=== PATIENT | female | born 1985 | race Caucasian/White ===

== ENCOUNTER 2024-01-17 10:07 | Emergency (ER) | payer BC ==
[2024-01-17 10:17] VITALS: BP 111/65; PULSE 99
[2024-01-17] MEDS: methylPREDNISolone Acetate 80 MG/ML SDV IM ONE (11:24)
[2024-01-17] MEDS: Take Home: Amoxicillin/Clavulanate K 875-125 MG Tab, 2 Tab Pack PO ONE (11:27)
== END 2024-01-17 11:35 | disposition home or self-care (01) ==
LOC: CC.ED 10:07
DX: J02.9 Acute pharyngitis, unspecified (principal); K21.9 Gastro-esophageal reflux disease without esophagitis; Z79.899 Other long term (current) drug therapy
CPT/HCPCS: 87651; 96372; 99283; 99284; A9270; J1010